=== PATIENT | female | born 1975 | race Caucasian/White ===

== ENCOUNTER 2017-06-17 07:15 | Emergency (ER) | payer BC ==
[2017-06-17] MEDS ORDERED: solu-MEDROL 125 MG IV ONE (07:32)
[2017-06-17] MEDS ORDERED: DUONEB 0.5-3 MG/3 ml Neb IH ONE ×2 (07:32→07:51)
--- NOTE | 2017-06-17 07:37 | ERPHSYRPT ---
- History of Present Illness Time Seen by Provider: 06/17/17 07:34 Source: patient Exam Limitations: no limitations Patient Subjective Stated Complaint: pt states she began feeling sob last pm with wheezing. states she has a hx of asthma. Triage Nursing Assessment: pt pink, warm, dry. audible expiratory wheezes noted. posterior lung sounds clear and equal. pt afebrile. Physician History: mild to mod off and on familiar wheezing for one day, no fever, hx asthma, no htn or NE, no pain Allergies/Adverse Reactions: erythromycin base Allergy (Verified 06/17/17 07:28) Home Medications: Albuterol 2.5 mg/3 ml Neb [Proventil 2.5 mg/3 ml Neb] 2.5 mg IH Q4-6HPRN PRN 06/17/17 [History] Albuterol Sulfate [Albuterol Sulfate Hfa] 8.5 gm IH Q4-6HPRN PRN 06/17/17 [ History] Hx Tetanus, Diphtheria Vaccination/Date Given: Yes (up to date) Hx Influenza Vaccination/Date Given: Yes Hx Pneumococcal Vaccination/Date Given: Yes Immunizations Up to Date: No - Review of Systems Constitutional: No Fever Eyes: No Symptoms Ears, Nose, & Throat: No Symptoms Respiratory: Dyspnea, Wheezing, No Cyanosis Cardiac: No Symptoms Abdominal/Gastrointestinal: No Symptoms Musculoskeletal: No Symptoms Skin: No Symptoms Neurological: No Symptoms Psychological: No Symptoms - Past Medical History Pertinent Past Medical History: Yes Respiratory History: Asthma - Past Surgical History Past Surgical History: Yes Gastrointestinal: Cholecystectomy, Hernia Repair Musculoskeletal: Orthopedic Surgery - Social History Smoking Status: Never smoker Exposure to second hand smoke: No Drug Use: none Patient Lives Alone: No - Female History Hx Now: No - Nursing Vital Signs Nursing Vital Signs: Initial Vital Signs Temperature 97.9 F 06/17/17 07:23 Pulse Rate 76 06/17/17 07:23 Respiratory Rate 28 H 06/17/17 07:23 Blood Pressure 150/105 06/17/17 07:23 O2 Sat by Pulse Oximetry 97 06/17/17 07:23 Pain Scale Pain Intensity 0 - Physical Exam General Appearance: no apparent distress Eye Exam: PERRL/EOMI Ears, Nose, Throat Exam: moist mucous membranes Neck Exam: normal inspection Respiratory Exam: wheezing Cardiovascular Exam: regular rate/rhythm Gastrointestinal/Abdomen Exam: soft, No tenderness Extremity Exam: normal inspection, No pedal edema Neurologic Exam: alert, oriented x 3, cooperative Skin Exam: normal color, warm SpO2 Interpretation: normal SpO2: 97 Oxygen Delivery: Room Air - Course Nursing assessment & vital signs reviewed: Yes EKG Interpreted by Me: Other (nsr 69 no stemi) - Radiology Exams Chest X-ray Interpretation: Discussed w/ radiologist, Negative Ordered Tests: Active Orders 24 hr Category Date Time Status Charging Manipulator STAT Care 06/17/17 07:33 Active EKG-ER Only STAT Care 06/17/17 07:32 Active IV Insertion STAT Care 06/17/17 07:32 Active Pulse Oximetry (ED) STAT Care 06/17/17 07:32 Active CHEST 2 VIEWS (PA AND LAT) Stat Exams 06/17/17 07:33 Completed CBC W DIFF Stat Lab 06/17/17 07:30 Completed CMP Stat Lab 06/17/17 07:30 Completed D-DIMER QUANTITATION Stat Lab 06/17/17 07:30 Completed HCG QUALITATIVE,SERUM Stat Lab 06/17/17 07:30 Completed Manual Differential NC Stat Lab 06/17/17 07:30 Completed NT PRO BNP Stat Lab 06/17/17 07:30 Completed TROPONIN Q3H Lab 06/17/17 07:45 Completed TROPONIN Q3H Lab 06/17/17 10:45 Ordered TROPONIN Q3H Lab 06/17/17 13:45 Ordered TROPONIN Q3H Lab 06/17/17 16:45 Ordered TROPONIN Q3H Lab 06/17/17 19:45 Ordered Respiratory Nebulizer STAT RT 06/17/17 07:34 Completed Medication Summary Discontinued Medications Generic Name Dose Route Start Last Admin Trade Name Freq PRN Reason Stop Dose Admin Albuterol/Ipratropium 3 ml 06/17/17 07:32 06/17/17 07:53 Duoneb 0.5-3 Mg/3 Ml Neb IH 06/17/17 07:33 3 ml STAT ONE Administration Albuterol/Ipratropium Confirm 06/17/17 07:51 Duoneb 0.5-3 Mg/3 Ml Neb Administered 06/17/17 07:52 Dose 3 ml IH .STK-MED ONE Methylprednisolone Sodium Succinate 125 mg 06/17/17 07:32 06/17/17 07:39 Solu-Medrol 125 Mg IV 06/17/17 07:33 125 mg STAT ONE Administration Methylprednisolone Sodium Succinate Confirm 06/17/17 07:38 Solu-Medrol 125 Mg Administered 06/17/17 07:39 Dose 125 mg .ROUTE .STK-MED ONE Lab/Rad Data: Laboratory Result Diagrams 06/17/17 07:30 06/17/17 07:30 Laboratory Results 06/17/17 06/17/17 06/17/17 Range/Units 07:45 07:30 07:30 WBC (4.0-10.5) K/mm3 RBC (4.1-5.4) M/mm3 Hgb (12.0-16.0) gm/dl Hct (35-47) % MCV (78-100) fl MCH (26-32) pg MCHC (32-36) g/dl RDW (11.5-14.0) % Plt Count (150-450) K/mm3 MPV (6-9.5) fl Segmented Neutrophils (36.0-66.0) % Lymphocytes (Manual) (24-44) % Monocytes (Manual) (0.0-12.0) % Differential Comment Platelet Estimate (NORMAL) Poikilocytosis Anisocytosis D-Dimer < 215 (0-500) ng/mL Sodium (136-145) mEq/L Potassium (3.5-5.1) mEq/L Chloride (98-107) mEq/L Carbon Dioxide (21-32) mEq/L Anion Gap (5-15) MEQ/L BUN (9-20) mg/dL Creatinine (0.55-1.30) mg/dl Estimated GFR ML/MIN Glucose (70-110) MG/DL Calcium (8.5-10.1) mg/dL Total Bilirubin (0.2-1.0) mg/dL AST (15-37) U/L ALT (12-78) U/L Alkaline Phosphatase (46-116) U/L Troponin I < 0.017 (0.000-0.056) ng/ml NT-Pro-B Natriuret Pep (0-125) pg/ml Serum Total Protein (6.4-8.2) gm/dL Albumin (3.4-5.0) g/dL Serum , Qual NEGATIVE (Negative) 12/04/17 12/04/17 Range/Units 07:30 07:30 WBC 9.3 (4.0-10.5) K/mm3 RBC 4.72 (4.1-5.4) M/mm3 Hgb 13.8 (12.0-16.0) gm/dl Hct 43.6 (35-47) % MCV 92.4 (78-100) fl MCH 29.2 (26-32) pg MCHC 31.7 L (32-36) g/dl RDW 12.1 (11.5-14.0) % Plt Count 253 (150-450) K/mm3 MPV 11.8 H (6-9.5) fl Segmented Neutrophils 61 (36.0-66.0) % Lymphocytes (Manual) 35 (24-44) % Monocytes (Manual) 4 (0.0-12.0) % Differential Comment ABNORMAL Platelet Estimate NORMAL (NORMAL) Poikilocytosis 1+ Anisocytosis 1+ D-Dimer (0-500) ng/mL Sodium 140 (136-145) mEq/L Potassium 4.2 (3.5-5.1) mEq/L Chloride 103 (98-107) mEq/L Carbon Dioxide 25.1 (21-32) mEq/L Anion Gap 16.4 H (5-15) MEQ/L BUN 12 (9-20) mg/dL Creatinine 0.91 (0.55-1.30) mg/dl Estimated GFR > 60 ML/MIN Glucose 202 H (70-110) MG/DL Calcium 8.8 (8.5-10.1) mg/dL Total Bilirubin 0.30 (0.2-1.0) mg/dL AST 25 (15-37) U/L ALT 59 (12-78) U/L Alkaline Phosphatase 151 H (46-116) U/L Troponin I (0.000-0.056) ng/ml NT-Pro-B Natriuret Pep 68 (0-125) pg/ml Serum Total Protein 7.9 (6.4-8.2) gm/dL Albumin 3.7 (3.4-5.0) g/dL Serum , Qual (Negative) - Progress Progress: improved Air Movement: good Progress Note: 06/17/17 09:44 pt improved after duo neb and steroids Discussed with : Other (see your doctor) Will see patient in: office Counseled pt/family regarding: lab results, diagnosis, need for follow-up, rad results - Departure Time of Disposition: 09:45 Departure Disposition: Home Clinical Impression: Asthma attack Qualifiers: Asthma severity: mild Asthma persistence: unspecified Qualified Code(s): J45.901 - Unspecified asthma with (acute) exacerbation Condition: Stable Critical Care Time: No Referrals: YADI GROSS [Primary Care Provider] - Instructions: Asthma -- Adult Additional Instructions: see your doctor medrol, and proventil inhaler return if worse
[2017-06-17] MEDS ORDERED: solu-MEDROL 125 MG ONE (07:38)
[2017-06-17 07:50] LABS: Mean Cell Volume 92.4 fl (78-100); Mean Corpuscular Hemoglobin 29.2 pg (26-32); Mean Platelet Volume 11.8 fl (6-9.5); Platelet Count 253 K/mm3 (150-450); Red Blood Count 4.72 M/mm3 (4.1-5.4); Red Cell Distribution Width 12.1 % (11.5-14.0); White Blood Count 9.3 K/mm3 (4.0-10.5)
[2017-06-17 08:14] LABS: ALBUMIN 3.7 g/dL (3.4-5.0); ALKALINE PHOSPHATASE 151 U/L (46-116); ANION GAP 16.4 MEQ/L (5-15); BLOOD UREA NITROGEN 12 mg/dL (9-20); CHLORIDE 103 mEq/L (98-107); Carbon Dioxide 25.1 mEq/L (21-32); Glucose 202 MG/DL (70-110); Potassium 4.2 mEq/L (3.5-5.1); SGOT/AST 25 U/L (15-37); SGPT/ALT 59 U/L (12-78); SODIUM 140 mEq/L (136-145); Total Protein 7.9 gm/dL (6.4-8.2)
[2017-06-17 08:24] LABS: Total Cells Counted 100
[2017-06-17 08:25] LABS: ANISOCYTOSIS 1+; Platelet Estimate NORMAL (NORMAL); Poikilocytosis 1+
--- NOTE | 2017-06-17 08:46 | XRAY ---
Indication: Wheezing. Asthma attack. Comparison: None PA/lateral chest demonstrates normal heart and lungs. Bony thorax intact.
[2017-06-17 10:04] VITALS: BP 155/97; PULSE 92; O2SAT 95
== END 2017-06-17 10:08 | disposition home or self-care (01) ==
LOC: ED 07:15 → EDBD 07:15 → ED 10:08
DX: J45.901 Unspecified asthma with (acute) exacerbation (principal); Z79.899 Other long term (current) drug therapy; R06.00 Dyspnea, unspecified; R06.2 Wheezing
CPT/HCPCS: 36000; 36415; 71020; 80053; 83880; 84484; 84703; 85025; 85379; 93005; 93041; 94640; 96374; 99284; J2930; A9270-GY

== ENCOUNTER 2018-10-19 20:56 | Emergency (ER) | payer BC ==
[2018-10-19] MEDS ORDERED: DUONEB 0.5-3 MG/3 ml Neb IH ONE ×2 (21:24→21:30)
[2018-10-19] MEDS ORDERED: solu-MEDROL 125 MG IV ONE (21:24)
--- NOTE | 2018-10-19 21:29 | ERPHSYRPT ---
- History of Present Illness Time Seen by Provider: 10/19/18 21:22 Source: patient Exam Limitations: no limitations Patient Subjective Stated Complaint: pt states she has been having wheezing and shortness of breath since last night increasing today. Triage Nursing Assessment: pt alert and oriented, asnwers questions approp. pt ambulatory with steady gait noted. pt short of breath with exertion, frequent tight cough noted, nonproductive. lung sounds clear bilat. Physician History: Pt started c/o wheezing, nonproductive cough, increasing SOB last night. She used her nebulizer twice today, denies any chest pain, productive cough, vomiting, fever, chills, no leg swelling, or pain, denies taking control pills. Activities at Onset: none Severity of Dyspnea-Max: severe Severity of Dyspnea-Current: severe Possible Cause: frequent episodes Modifying Factors: Improves With: nothing Associated Symptoms: cough, wheezing Allergies/Adverse Reactions: erythromycin base Allergy (Verified 10/19/18 21:17) Home Medications: Albuterol 2.5 mg/3 ml Neb DAILY PRN PRN 12/27/11 [History] Flovent Hfa 2 puff IH DAILY 12/27/11 [History] Proventil Hfa DAILY PRN PRN 12/27/11 [History] Albuterol 2.5 mg/3 ml Neb [Proventil 2.5 mg/3 ml Neb] 2.5 mg IH Q4-6HPRN PRN 06/17/17 [History] Albuterol Sulfate [Albuterol Sulfate Hfa] 8.5 gm IH Q4-6HPRN PRN 06/17/17 [ History] Hx Tetanus, Diphtheria Vaccination/Date Given: Yes (up to date) Hx Influenza Vaccination/Date Given: Yes Hx Pneumococcal Vaccination/Date Given: Yes Immunizations Up to Date: Yes - Review of Systems Constitutional: No Symptoms Eyes: No Symptoms Ears, Nose, & Throat: No Symptoms Respiratory: Cough, Dyspnea, Wheezing Cardiac: No Symptoms Abdominal/Gastrointestinal: No Symptoms Genitourinary Symptoms: No Symptoms Musculoskeletal: No Symptoms Skin: No Symptoms Neurological: No Symptoms All Other Systems: Reviewed and Negative - Past Medical History Pertinent Past Medical History: Yes Respiratory History: Asthma Endocrine Medical History: Diabetes Type II - Past Surgical History Past Surgical History: Yes Gastrointestinal: Cholecystectomy, Hernia Repair Musculoskeletal: Orthopedic Surgery Other Surgical History: RIGHT KNEE SURGERY, RIGHT ANKLE SURGERY - Social History Smoking Status: Never smoker Exposure to second hand smoke: No Drug Use: none Patient Lives Alone: No - Female History Hx Last Menstrual Period: post jaquelin Hx Now: No - Nursing Vital Signs Nursing Vital Signs: Initial Vital Signs Temperature 98.1 F 10/19/18 20:57 Pulse Rate 96 H 10/19/18 20:57 Respiratory Rate 20 10/19/18 20:57 Blood Pressure 152/96 10/19/18 20:57 O2 Sat by Pulse Oximetry 98 10/19/18 20:57 Pain Scale Pain Intensity 0 - Physical Exam General Appearance: no apparent distress Eye Exam: eyes nml inspection Ears, Nose, Throat Exam: hearing grossly normal, normal ENT inspection, normal pharynx Neck Exam: normal inspection, non-tender, supple, No JVD Respiratory Exam: respiratory distress, airway intact, wheezing (diffuse, expiratory wheezing), No chest tenderness Cardiovascular/Chest Exam: normal heart sounds, regular rate/rhythm, normal peripheral pulses, No murmur, No edema, No JVD Abdominal/Gastrointestinal Exam: soft, normal bowel sounds, No tenderness Extremity Exam: non-tender, normal capillary refill, No no calf tenderness, No no pedal edema, No zach's sign Peripheral Pulses Exam: dorsalis-pedis (R): 3+, dorsalis-pedis (L): 3+ Neurologic Exam: alert, oriented x 3, normal mood/affect Skin Exam: normal color, warm, dry, No rash, No petechiae Lymphatic Exam: No adenopathy SpO2 Interpretation: normal SpO2: 98 O2 Delivery: Room Air - Course Nursing assessment & vital signs reviewed: Yes EKG Interpreted by Me: RATE (88), NORMAL AXIS, NORMAL INTERVALS, NORMAL QRS, NORMAL ST-T - Radiology Exams Chest X-ray Interpretation: Interpreted by me, Negative Ordered Tests: Active Orders 24 hr Category Date Time Status Armed Security Guard STAT Care 10/19/18 21:23 Active EKG-ER Only STAT Care 10/19/18 21:22 Active IV Insertion STAT Care 10/19/18 21:22 Active CHEST 2 VIEWS (PA AND LAT) Stat Exams 10/19/18 21:23 Taken CBC W DIFF Stat Lab 10/19/18 21:12 Completed CK-Creatinine Phosphokinase Stat Lab 10/19/18 21:12 Completed CMP Stat Lab 10/19/18 21:12 Completed MAGNESIUM Stat Lab 10/19/18 21:12 Completed Manual Differential NC Stat Lab 10/19/18 21:12 Completed NT PRO BNP Stat Lab 10/19/18 21:12 Completed PROTIME WITH INR Stat Lab 10/19/18 21:12 Completed PTT Stat Lab 10/19/18 21:12 Completed TROPONIN Q3H Lab 10/19/18 21:12 Completed TROPONIN Q3H Lab 10/20/18 00:30 Ordered TROPONIN Q3H Lab 10/20/18 03:30 Ordered TROPONIN Q3H Lab 10/20/18 06:30 Ordered TROPONIN Q3H Lab 10/20/18 09:30 Ordered Peak Expiratory Flow Rate ONCE RT 10/19/18 21:36 Active Respiratory Therapy Assessment DAILY RT 10/19/18 21:36 Active Medication Summary Discontinued Medications Generic Name Dose Route Start Last Admin Trade Name Freq PRN Reason Stop Dose Admin Albuterol/Ipratropium 3 ml 10/19/18 21:24 10/19/18 21:31 Duoneb 0.5-3 Mg/3 Ml Neb IH 10/19/18 21:25 3 ml STAT ONE Administration Albuterol/Ipratropium Confirm 10/19/18 21:30 Duoneb 0.5-3 Mg/3 Ml Neb Administered 10/19/18 21:31 Dose 3 ml IH .STK-MED ONE Methylprednisolone Sodium Succinate 125 mg 10/19/18 21:24 10/19/18 21:39 Solu-Medrol 125 Mg IV 10/19/18 21:25 125 mg STAT ONE Administration Methylprednisolone Sodium Succinate Confirm 10/19/18 21:37 Solu-Medrol 125 Mg Administered 10/19/18 21:38 Dose 125 mg .ROUTE .STK-MED ONE Lab/Rad Data: Laboratory Result Diagrams 10/19/18 21:12 10/19/18 21:12 Laboratory Results 10/19/18 10/19/18 10/19/18 Range/Units 21:12 21:12 21:12 WBC (4.0-10.5) K/mm3 RBC (4.1-5.4) M/mm3 Hgb (12.0-16.0) gm/dl Hct (35-47) % MCV (78-100) fl MCH (26-32) pg MCHC (32-36) g/dl RDW (11.5-14.0) % Plt Count (150-450) K/mm3 MPV (6-9.5) fl Absolute Granulocytes (1.4-6.9) PT 11.4 (9.95-12.35) SECONDS INR 0.98 (0.8-3.0) APTT 28.8 (25.3-37.0) SECONDS Sodium 142 (137-145) mmol/L Potassium 4.0 (3.5-5.1) mmol/L Chloride 102 (98-107) mmol/L Carbon Dioxide 28 (22-30) mmol/L Anion Gap 16.3 H (5-15) MEQ/L BUN 17 (7-17) mg/dL Creatinine 0.83 (0.52-1.04) mg/dL Estimated GFR > 60.0 ML/MIN Glucose 125 H (74-106) mg/dL Calcium 10.3 H (8.4-10.2) mg/dL Magnesium 1.8 (1.6-2.3) mg/dL Total Bilirubin 0.40 (0.2-1.3) mg/dL AST 47 H (14-36) U/L ALT 60 H (0-35) U/L Alkaline Phosphatase 104 (38-126) U/L Creatine Kinase 64 (30-135) U/L Troponin I < 0.012 (0.000-0.034) ng/mL NT-Pro-B Natriuret Pep 33.8 (0-450) pg/mL Serum Total Protein 8.0 (6.3-8.2) g/dL Albumin 4.6 (3.5-5.0) g/dL 10/19/18 Range/Units 21:12 WBC 10.8 H (4.0-10.5) K/mm3 RBC 4.78 (4.1-5.4) M/mm3 Hgb 14.3 (12.0-16.0) gm/dl Hct 44.9 (35-47) % MCV 93.9 (78-100) fl MCH 29.9 (26-32) pg MCHC 31.8 L (32-36) g/dl RDW 12.7 (11.5-14.0) % Plt Count 309 (150-450) K/mm3 MPV 11.7 H (6-9.5) fl Absolute Granulocytes 6.12 (1.4-6.9) PT (9.95-12.35) SECONDS INR (0.8-3.0) APTT (25.3-37.0) SECONDS Sodium (137-145) mmol/L Potassium (3.5-5.1) mmol/L Chloride (98-107) mmol/L Carbon Dioxide (22-30) mmol/L Anion Gap (5-15) MEQ/L BUN (7-17) mg/dL Creatinine (0.52-1.04) mg/dL Estimated GFR ML/MIN Glucose (74-106) mg/dL Calcium (8.4-10.2) mg/dL Magnesium (1.6-2.3) mg/dL Total Bilirubin (0.2-1.3) mg/dL AST (14-36) U/L ALT (0-35) U/L Alkaline Phosphatase (38-126) U/L Creatine Kinase (30-135) U/L Troponin I (0.000-0.034) ng/mL NT-Pro-B Natriuret Pep (0-450) pg/mL Serum Total Protein (6.3-8.2) g/dL Albumin (3.5-5.0) g/dL - Progress Progress: improved Air Movement: good Progress Note: 10/19/18 22:56 Pt improved significantly after 2 neb. treatments and iv Solumedrol, she has been afebrile, denies pain, wheezing resolved, she is stable to be discharged. She was educated about our results, advised to rest 1-2 days, drink plenty of fluids, and follow up with her physician in 2-3 days. Blood Culture(s) Obtained: No Antibiotics given: No Counseled pt/family regarding: lab results, diagnosis, need for follow-up, rad results - Departure Departure Disposition: Home Clinical Impression: Asthma attack Qualifiers: Asthma severity: severe Asthma persistence: unspecified Qualified Code(s): J45.901 - Unspecified asthma with (acute) exacerbation Condition: Stable Critical Care Time: No Referrals: YADI GROSS [Primary Care Provider] - Instructions: Asthma, Adult (DC) Additional Instructions: Rest x 1-2 days, drink plenty of fluids, and follow up with your physician in 2- 3 days, return if severe wheezing, chest pain, vomiting, fever> 102 F! Forms: Work/School Release Form Prescriptions: Levofloxacin [Levaquin] 500 mg PO DAILY #7 tablet Methylprednisolone Packet [Medrol Dosepack] 4 mg PO UD #1 packet
[2018-10-19] MEDS ORDERED: solu-MEDROL 125 MG ONE (21:37)
[2018-10-19 21:42] LABS: Granulocyte Absolute (ANC) 6.12 (1.4-6.9); Hematocrit 44.9 % (35-47); Hemoglobin 14.3 gm/dl (12.0-16.0); Mean Cell Volume 93.9 fl (78-100); Mean Corpuscular Hemoglobin 29.9 pg (26-32); Mean Corpuscular Hgb Concent. 31.8 g/dl (32-36); Mean Platelet Volume 11.7 fl (6-9.5); Platelet Count 309 K/mm3 (150-450); Red Blood Count 4.78 M/mm3 (4.1-5.4); Red Cell Distribution Width 12.7 % (11.5-14.0); White Blood Count 10.8 K/mm3 (4.0-10.5)
[2018-10-19 22:13] LABS: INR 0.98 (0.8-3.0); PROTIME 11.4 SECONDS (9.95-12.35)
[2018-10-19 22:16] LABS: PTT 28.8 SECONDS (25.3-37.0)
[2018-10-19 22:21] LABS: ALBUMIN 4.6 g/dL (3.5-5.0); ALKALINE PHOSPHATASE 104 U/L (38-126); ANION GAP 16.3 MEQ/L (5-15); BLOOD UREA NITROGEN 17 mg/dL (7-17); CHLORIDE 102 mmol/L (98-107); CK-Creatinine Phosphokinase 64 U/L (30-135); Calcium 10.3 mg/dL (8.4-10.2); Carbon Dioxide 28 mmol/L (22-30); Creatinine 1 0.83 mg/dL (0.52-1.04); Glucose 125 mg/dL (74-106); MAGNESIUM 1.8 mg/dL (1.6-2.3); NT PRO BNP 33.8 pg/mL (0-450); SGOT/AST 47 U/L (14-36); SGPT/ALT 60 U/L (0-35); SODIUM 142 mmol/L (137-145)
[2018-10-19 23:11] VITALS: BP 122/80; PULSE 95; O2SAT 99
[2018-10-19 23:39] LABS: BAND 7 % (0.0-2.0); Eosinophil 1 % (0.00-3.0); Lymphocytes 26 % (24-44); Monocyte 5 % (0.0-12.0); Neutrophils 61 % (36.0-66.0); Platelet Estimate NORMAL (NORMAL); Total Cells Counted 100
--- NOTE | 2018-10-20 09:21 | XRAY ---
Indication: Wheezing. Short of breath. Comparison: June 17, 2017. PA/lateral chest remains clear. Heart and mediastinal structures within normal limits. Bony thorax intact. Impression: Nonacute chest.
== END 2018-10-19 23:12 | disposition home or self-care (01) ==
LOC: ED 20:56
DX: J45.901 Unspecified asthma with (acute) exacerbation (principal); Z79.899 Other long term (current) drug therapy
CPT/HCPCS: 36000; 36415; 71046; 80053; 82550; 83735; 83880; 84484; 85025; 85610; 85730; 93005; 93041; 94150; 94640; 96374; 99284; J2930; A9270-GY